=== PATIENT | male | born 1960 | race Caucasian/White ===

== ENCOUNTER 2017-11-14 17:07 | Inpatient (IN) | payer MEDICAID ==
[~2017-11-14] VITALS: Ht 172.7 cm; Wt 115.9 kg
[2017-11-14 19:05] LABS: Basophils # (auto) 0.1 uL; Basophils % (auto) 0.9 % (0.0-2.0); Eosinophils # (auto) 0.2 uL; Eosinophils % (auto) 2.7 % (0.0-7.0); Hematocrit 38.5 % (41.0-53.0); Hemoglobin 12.7 g/dL (13.5-17.5); Lymphocytes # (auto) 1.6 uL; Mean Corpuscular Hemoglobin 27.6 pg (28.0-32.0); Mean Corpuscular Volume 83.6 fL (80.0-100.0); Monocytes # (auto) 0.8 uL; Monocytes % (auto) 8.9 % (0.0-12.0); Neutrophils # (auto) 5.9 uL; Neutrophils % (auto) 68.5 % (37.0-80.0); Nucleated Red Blood Cells % 0.1 %; Platelet Count (auto) 327 10^3/uL (140-450); Red Cell Distribution Width 15.6 % (11.8-14.3); White Blood Cell 8.6 10^3/uL (4.4-10.8)
[2017-11-14 19:36] LABS: Albumin 3.4 g/dL (3.4-5.0); BUN/Creatinine Ratio 22.7; Bilirubin, Total 0.3 mg/dL (0.2-1.0); Calcium 9.2 mg/dL (8.5-10.1); Potassium 4.5 mmol/L (3.5-5.1); Total Protein 7.6 g/dL (6.4-8.2)
[2017-11-14] MEDS ORDERED: SODIUM CHLORIDE 0.9% 1,000 ML IV ONE (20:00)
[2017-11-14] MEDS ORDERED: InsuLIN REG 1unit/0.01ml Soln (100units/ml) IV ONE (20:00)
[2017-11-14] MEDS ORDERED: VANCOMYCIN 1GM/250ML 250 ML IV ONE (22:45)
[2017-11-14] MEDS ORDERED: cefTRIAXone 1GM/10ml IVPUSH 10 ML IV ONE (22:45)
[2017-11-15] MEDS ORDERED: DEXTROSE (50%) 50ML SYRG IV PRN (02:45)
[2017-11-15] MEDS ORDERED: ONDANSETRON HCL 4 MG/2 ML VIAL IV PRN (02:45)
[2017-11-15] MEDS ORDERED: VANCOMYCIN PER PHARMACY 0 MG IV SCH (02:45)
[2017-11-15] MEDS ORDERED: ACETAMINOPHEN 325 MG TAB PO PRN (03:30)
[2017-11-15] MEDS ORDERED: LAMO200T2 PO (03:38)
[2017-11-15] MEDS ORDERED: SERT-138 PO (03:38)
[2017-11-15] MEDS ORDERED: QUET50TA PO (03:38)
[2017-11-15] MEDS ORDERED: InsuLIN REG 1unit/0.01ml Soln (100units/ml) SC SCH (06:00)
[2017-11-15] MEDS: ACCU-CHEK COMFORT CURVE STRIP VI SCH ×4 (08:13→21:29)
[2017-11-15] MEDS ORDERED: FUROSEMIDE 40 MG TAB PO SCH (10:00)
[2017-11-15] MEDS ORDERED: LOSARTAN POTASSIUM 25 MG TAB PO SCH (10:00)
[2017-11-15] MEDS: FAMOTIDINE 20 MG TAB PO SCH ×2 (10:17→21:28)
[2017-11-15] MEDS: VANCOMYCIN 1GM/250ML 250 ML IV SCH ×2 (11:02→22:57)
[2017-11-15 13:00] VITALS: BP 164/97
[2017-11-15] MEDS: MORPHINE SULF INJ 2 MG/ML SYRINGE 1ML IV PRN (14:37)
[2017-11-15] MEDS ORDERED: GABA300C10 PO (15:03)
[2017-11-15] MEDS ORDERED: ASPI-231 PO (15:03)
[2017-11-15] MEDS ORDERED: PROP60CA34 PO (15:03)
[2017-11-15] MEDS ORDERED: LOSA25TA9 PO (15:03)
[2017-11-15] MEDS ORDERED: CARV3.1240 PO (15:03)
[2017-11-15 16:54] VITALS: BP 171/93
[2017-11-15] MEDS ORDERED: ACCU-CHEK COMFORT CURVE STRIP VI SCH (17:00)
[2017-11-15] MEDS: InsuLIN REG 1unit/0.01ml Soln (100units/ml) SC SCH ×2 (17:13→21:42)
[2017-11-15] MEDS: cloNIDine HCL 0.1 MG TAB PO PRN (17:15)
[2017-11-15] MEDS ORDERED: InsuLIN REG 1unit/0.01ml Soln (100units/ml) IV ONE (17:45)
[2017-11-15 18:26] VITALS: BP 140/74
[2017-11-15] MEDS ORDERED: ACCU-CHEK COMFORT CURVE STRIP VI ONE (19:45)
[2017-11-15] MEDS: ATORVASTATIN 20 MG TAB PO SCH (21:28)
[2017-11-15] MEDS: SERTRALINE HCL 50 MG TAB PO SCH (21:28)
[2017-11-15] MEDS: lamoTRIgine 100 MG TAB PO SCH (21:28)
[2017-11-15] MEDS: QUEtiapine FUMARATE 25 MG TAB PO SCH (21:28)
[2017-11-15] MEDS: GABAPENTIN 300 MG CAP PO SCH (21:29)
[2017-11-15] MEDS: INSULIN LANTUS (GLARGINE) 1 /0.01ml (100units/ml) SC SCH (21:42)
[2017-11-15 22:00] VITALS: BP 123/70
[2017-11-15] MEDS ORDERED: cefTRIAXone 1GM/10ml IVPUSH 10 ML IV SCH (22:00)
[2017-11-16] MEDS: MORPHINE SULF INJ 2 MG/ML SYRINGE 1ML IV PRN ×3 (05:10→23:42)
[2017-11-16 05:55] VITALS: BP 146/84
[2017-11-16] MEDS: GABAPENTIN 300 MG CAP PO SCH ×3 (06:45→21:55)
[2017-11-16] MEDS: ACCU-CHEK COMFORT CURVE STRIP VI SCH ×4 (06:45→21:56)
[2017-11-16] MEDS: InsuLIN REG 1unit/0.01ml Soln (100units/ml) SC SCH ×4 (06:48→21:57)
[2017-11-16 07:51] LABS: Calcium 8.7 mg/dL (8.5-10.1); Magnesium 2.1 mg/dL (1.6-2.6); Potassium 3.8 mmol/L (3.5-5.1)
[2017-11-16 07:53] LABS: BUN/Creatinine Ratio 18.3
[2017-11-16 08:00] LABS: Basophils # (auto) 0.1 uL; Eosinophils # (auto) 0.3 uL; Eosinophils % (auto) 3.6 % (0.0-7.0); Hematocrit 38.6 % (41.0-53.0); Hemoglobin 12.9 g/dL (13.5-17.5); Lymphocytes # (auto) 1.9 uL; Lymphocytes % (auto) 22.7 % (10.0-50.0); Mean Corpuscular Hemoglobin 27.7 pg (28.0-32.0); Mean Corpuscular Hgb Conc. 33.4 g/dL (32.0-36.0); Mean Corpuscular Volume 83.2 fL (80.0-100.0); Monocytes # (auto) 0.8 uL; Monocytes % (auto) 9.5 % (0.0-12.0); Neutrophils # (auto) 5.4 uL; Neutrophils % (auto) 63.2 % (37.0-80.0); Nucleated Red Blood Cells % 0.1 %; Platelet Count (auto) 313 10^3/uL (140-450); Red Blood Cells 4.64 10^6/uL (4.5-5.90); Red Cell Distribution Width 15.8 % (11.8-14.3); White Blood Cell 8.5 10^3/uL (4.4-10.8)
[2017-11-16 09:14] VITALS: BP 108/68
[2017-11-16] MEDS ORDERED: CARVEDILOL 3.125 MG TAB PO SCH (10:00)
[2017-11-16] MEDS ORDERED: PROPRANOLOL HCL 10 MG PO SCH (10:00)
[2017-11-16] MEDS: LOSARTAN POTASSIUM 50 MG TAB PO SCH (10:48)
[2017-11-16] MEDS: FUROSEMIDE 40 MG TAB PO SCH ×2 (10:49→21:55)
[2017-11-16] MEDS: ASPirin-EC 81 mg tab PO SCH (10:49)
[2017-11-16] MEDS: FAMOTIDINE 20 MG TAB PO SCH ×2 (10:50→21:55)
[2017-11-16] MEDS: INSULIN LANTUS (GLARGINE) 1 /0.01ml (100units/ml) SC SCH ×2 (10:50→21:56)
[2017-11-16] MEDS: VANCOMYCIN 1GM/250ML 250 ML IV SCH (11:20)
[2017-11-16] MEDS ORDERED: PROPRANOLOL HCL 20 MG TAB PO ONE (11:45)
[2017-11-16 17:26] VITALS: BP 124/76
[2017-11-16] MEDS: cefTRIAXone 1GM/10ml IVPUSH 10 ML IV SCH (21:00)
[2017-11-16] MEDS: VANCOMYCIN 1,500 MG in D5W 5% 250 ML IV SCH (21:54)
[2017-11-16] MEDS: lamoTRIgine 100 MG TAB PO SCH (21:54)
[2017-11-16] MEDS: ATORVASTATIN 20 MG TAB PO SCH (21:55)
[2017-11-16] MEDS: SERTRALINE HCL 50 MG TAB PO SCH (21:55)
[2017-11-16] MEDS: QUEtiapine FUMARATE 25 MG TAB PO SCH (21:55)
[2017-11-16 22:00] VITALS: BP 105/68
[2017-11-17 05:00] VITALS: BP 151/53
[2017-11-17] MEDS: GABAPENTIN 300 MG CAP PO SCH ×3 (06:25→22:12)
[2017-11-17] MEDS: ACCU-CHEK COMFORT CURVE STRIP VI SCH ×4 (06:25→22:13)
[2017-11-17] MEDS: InsuLIN REG 1unit/0.01ml Soln (100units/ml) SC SCH ×4 (06:27→22:29)
[2017-11-17 07:16] LABS: Basophils # (auto) 0.1 uL; Basophils % (auto) 0.6 % (0.0-2.0); Eosinophils # (auto) 0.4 uL; Eosinophils % (auto) 4.1 % (0.0-7.0); Hematocrit 38.3 % (41.0-53.0); Hemoglobin 12.8 g/dL (13.5-17.5); Lymphocytes # (auto) 1.4 uL; Lymphocytes % (auto) 14.2 % (10.0-50.0); Mean Corpuscular Hemoglobin 27.6 pg (28.0-32.0); Mean Corpuscular Hgb Conc. 33.4 g/dL (32.0-36.0); Mean Corpuscular Volume 82.7 fL (80.0-100.0); Monocytes # (auto) 0.8 uL; Monocytes % (auto) 8.3 % (0.0-12.0); Neutrophils # (auto) 7.4 uL; Neutrophils % (auto) 72.8 % (37.0-80.0); Platelet Count (auto) 305 10^3/uL (140-450); Red Blood Cells 4.63 10^6/uL (4.5-5.90); Red Cell Distribution Width 15.9 % (11.8-14.3); White Blood Cell 10.1 10^3/uL (4.4-10.8)
[2017-11-17 07:33] LABS: Potassium 3.7 mmol/L (3.5-5.1)
[2017-11-17 07:42] LABS: BUN/Creatinine Ratio 16.7; Calcium 8.2 mg/dL (8.5-10.1)
[2017-11-17] MEDS: MORPHINE SULF INJ 2 MG/ML SYRINGE 1ML IV PRN ×2 (09:36→15:38)
[2017-11-17] MEDS ORDERED: SOD CHL 0.45% 1,000 ML IV ONE (09:45)
[2017-11-17] MEDS ORDERED: VANCOMYCIN 1,500 MG in D5W 5% 250 ML IV SCH (10:00)
[2017-11-17] MEDS: INSULIN LANTUS (GLARGINE) 1 /0.01ml (100units/ml) SC SCH ×2 (10:05→22:27)
[2017-11-17] MEDS: LOSARTAN POTASSIUM 50 MG TAB PO SCH (10:06)
[2017-11-17] MEDS: ASPirin-EC 81 mg tab PO SCH (10:06)
[2017-11-17] MEDS: PROPRANOLOL HCL 20 MG TAB PO SCH (10:07)
[2017-11-17] MEDS: FAMOTIDINE 20 MG TAB PO SCH ×2 (10:07→22:12)
[2017-11-17] MEDS: VANCOMYCIN 1,500 MG in D5W 5% 250 ML IV SCH ×2 (10:29→22:11)
[2017-11-17 12:25] VITALS: BP 106/82
[2017-11-17 17:22] VITALS: BP 120/75
[2017-11-17] MEDS: cefTRIAXone 1GM/10ml IVPUSH 10 ML IV SCH (21:32)
[2017-11-17 22:00] VITALS: BP 142/69
[2017-11-17] MEDS: lamoTRIgine 100 MG TAB PO SCH (22:11)
[2017-11-17] MEDS: ATORVASTATIN 20 MG TAB PO SCH (22:12)
[2017-11-17] MEDS: QUEtiapine FUMARATE 25 MG TAB PO SCH (22:13)
[2017-11-17] MEDS: SERTRALINE HCL 50 MG TAB PO SCH (22:13)
[2017-11-18 05:00] VITALS: BP 128/71
[2017-11-18] MEDS: ACCU-CHEK COMFORT CURVE STRIP VI SCH ×4 (06:20→21:40)
[2017-11-18] MEDS: InsuLIN REG 1unit/0.01ml Soln (100units/ml) SC SCH ×4 (06:20→21:39)
[2017-11-18] MEDS: GABAPENTIN 300 MG CAP PO SCH ×3 (06:20→21:38)
[2017-11-18 06:24] LABS: Basophils # (auto) 0 uL; Basophils % (auto) 0.5 % (0.0-2.0); Eosinophils # (auto) 0.4 uL; Eosinophils % (auto) 4.6 % (0.0-7.0); Hematocrit 36.2 % (41.0-53.0); Hemoglobin 12.3 g/dL (13.5-17.5); Lymphocytes # (auto) 1.3 uL; Lymphocytes % (auto) 14.5 % (10.0-50.0); Mean Corpuscular Hemoglobin 27.8 pg (28.0-32.0); Mean Corpuscular Hgb Conc. 33.8 g/dL (32.0-36.0); Mean Corpuscular Volume 82.2 fL (80.0-100.0); Monocytes # (auto) 0.8 uL; Monocytes % (auto) 8.7 % (0.0-12.0); Neutrophils # (auto) 6.4 uL; Neutrophils % (auto) 71.7 % (37.0-80.0); Platelet Count (auto) 304 10^3/uL (140-450); Red Cell Distribution Width 15.8 % (11.8-14.3)
[2017-11-18 06:34] LABS: BUN/Creatinine Ratio 18.8; Calcium 8.1 mg/dL (8.5-10.1); Potassium 3.9 mmol/L (3.5-5.1)
[2017-11-18 08:00] VITALS: BP 106/72
[2017-11-18 09:00] VITALS: BP 103/73
[2017-11-18] MEDS: VANCOMYCIN 1,500 MG in D5W 5% 250 ML IV SCH (09:44)
[2017-11-18] MEDS: MULTIPLE VITAMIN TAB PO SCH (09:44)
[2017-11-18] MEDS: FAMOTIDINE 20 MG TAB PO SCH ×2 (09:44→21:38)
[2017-11-18] MEDS: LOSARTAN POTASSIUM 50 MG TAB PO SCH (09:45)
[2017-11-18] MEDS: ASCORBIC ACID 500 MG TAB PO SCH ×2 (09:46→21:39)
[2017-11-18] MEDS: ASPirin-EC 81 mg tab PO SCH (09:46)
[2017-11-18] MEDS: PROPRANOLOL HCL 20 MG TAB PO SCH (09:46)
[2017-11-18] MEDS: INSULIN LANTUS (GLARGINE) 1 /0.01ml (100units/ml) SC SCH ×2 (10:11→21:40)
[2017-11-18 13:00] VITALS: BP 129/71
[2017-11-18 18:04] VITALS: BP 131/75
[2017-11-18] MEDS: cefTRIAXone 1GM/10ml IVPUSH 10 ML IV SCH (20:54)
[2017-11-18] MEDS: QUEtiapine FUMARATE 25 MG TAB PO SCH (21:38)
[2017-11-18] MEDS: ATORVASTATIN 20 MG TAB PO SCH (21:38)
[2017-11-18] MEDS: lamoTRIgine 100 MG TAB PO SCH (21:38)
[2017-11-18] MEDS: SERTRALINE HCL 50 MG TAB PO SCH (21:39)
[2017-11-18 21:47] VITALS: BP 152/72
[2017-11-19 04:41] VITALS: BP 94/52
[2017-11-19] MEDS: GABAPENTIN 300 MG CAP PO SCH ×3 (05:39→21:57)
[2017-11-19] MEDS: ACCU-CHEK COMFORT CURVE STRIP VI SCH ×4 (06:11→21:59)
[2017-11-19] MEDS: InsuLIN REG 1unit/0.01ml Soln (100units/ml) SC SCH ×4 (06:11→21:58)
[2017-11-19 07:10] LABS: Basophils # (auto) 0.1 uL; Basophils % (auto) 0.9 % (0.0-2.0); Eosinophils # (auto) 0.3 uL; Eosinophils % (auto) 3.6 % (0.0-7.0); Hematocrit 35.2 % (41.0-53.0); Hemoglobin 11.6 g/dL (13.5-17.5); Lymphocytes # (auto) 1.2 uL; Lymphocytes % (auto) 14.6 % (10.0-50.0); Mean Corpuscular Hemoglobin 27.5 pg (28.0-32.0); Mean Corpuscular Hgb Conc. 32.9 g/dL (32.0-36.0); Mean Corpuscular Volume 83.6 fL (80.0-100.0); Monocytes # (auto) 0.6 uL; Monocytes % (auto) 7.2 % (0.0-12.0); Neutrophils # (auto) 6.2 uL; Neutrophils % (auto) 73.7 % (37.0-80.0); Platelet Count (auto) 293 10^3/uL (140-450); Red Blood Cells 4.21 10^6/uL (4.5-5.90); Red Cell Distribution Width 15.6 % (11.8-14.3); White Blood Cell 8.5 10^3/uL (4.4-10.8)
[2017-11-19 07:26] LABS: BUN/Creatinine Ratio 15.8; Calcium 7.8 mg/dL (8.5-10.1); Potassium 4.2 mmol/L (3.5-5.1)
[2017-11-19 09:00] VITALS: BP 145/80
[2017-11-19] MEDS: FAMOTIDINE 20 MG TAB PO SCH ×2 (10:05→21:57)
[2017-11-19] MEDS: LOSARTAN POTASSIUM 50 MG TAB PO SCH (10:05)
[2017-11-19] MEDS: ASCORBIC ACID 500 MG TAB PO SCH ×2 (10:05→21:58)
[2017-11-19] MEDS: PROPRANOLOL HCL 20 MG TAB PO SCH (10:06)
[2017-11-19] MEDS: MULTIPLE VITAMIN TAB PO SCH (10:06)
[2017-11-19] MEDS: ASPirin-EC 81 mg tab PO SCH (10:12)
[2017-11-19] MEDS: VANCOMYCIN 1GM/250ML 250 ML IV SCH ×2 (10:12→21:56)
[2017-11-19] MEDS: INSULIN LANTUS (GLARGINE) 1 /0.01ml (100units/ml) SC SCH ×2 (11:14→21:59)
[2017-11-19 13:00] VITALS: BP 146/84
[2017-11-19] MEDS: MORPHINE SULF INJ 2 MG/ML SYRINGE 1ML IV PRN (14:16)
[2017-11-19] MEDS: cloNIDine HCL 0.1 MG TAB PO PRN (16:53)
[2017-11-19 17:15] VITALS: BP 196/101
[2017-11-19] MEDS: cefTRIAXone 1GM/10ml IVPUSH 10 ML IV SCH (20:40)
[2017-11-19] MEDS: lamoTRIgine 100 MG TAB PO SCH (21:57)
[2017-11-19] MEDS: ATORVASTATIN 20 MG TAB PO SCH (21:57)
[2017-11-19] MEDS: SERTRALINE HCL 50 MG TAB PO SCH (21:58)
[2017-11-19] MEDS: QUEtiapine FUMARATE 25 MG TAB PO SCH (21:58)
[2017-11-19 22:00] VITALS: BP 155/83
[2017-11-20 05:00] VITALS: BP 140/82
[2017-11-20] MEDS: GABAPENTIN 300 MG CAP PO SCH ×3 (05:36→22:34)
[2017-11-20] MEDS: InsuLIN REG 1unit/0.01ml Soln (100units/ml) SC SCH ×4 (06:04→22:00)
[2017-11-20] MEDS: ACCU-CHEK COMFORT CURVE STRIP VI SCH ×4 (06:04→22:37)
[2017-11-20 07:07] LABS: Basophils # (auto) 0.1 uL; Basophils % (auto) 0.7 % (0.0-2.0); Eosinophils # (auto) 0.3 uL; Eosinophils % (auto) 4.5 % (0.0-7.0); Hematocrit 35.6 % (41.0-53.0); Hemoglobin 11.9 g/dL (13.5-17.5); Lymphocytes # (auto) 1.8 uL; Lymphocytes % (auto) 23.1 % (10.0-50.0); Mean Corpuscular Hemoglobin 27.5 pg (28.0-32.0); Mean Corpuscular Hgb Conc. 33.4 g/dL (32.0-36.0); Mean Corpuscular Volume 82.4 fL (80.0-100.0); Monocytes # (auto) 0.6 uL; Monocytes % (auto) 8.1 % (0.0-12.0); Neutrophils # (auto) 4.9 uL; Neutrophils % (auto) 63.6 % (37.0-80.0); Platelet Count (auto) 316 10^3/uL (140-450); Red Blood Cells 4.32 10^6/uL (4.5-5.90); Red Cell Distribution Width 15.6 % (11.8-14.3); White Blood Cell 7.6 10^3/uL (4.4-10.8)
[2017-11-20 07:23] LABS: INR 0.98 (0.9-1.15); Prothrombin Time 10.5 sec (9.27-12.13)
[2017-11-20 07:27] LABS: BUN/Creatinine Ratio 15.9; Calcium 8.1 mg/dL (8.5-10.1); Potassium 4.1 mmol/L (3.5-5.1)
[2017-11-20 09:00] VITALS: BP 153/81
[2017-11-20] MEDS: INSULIN LANTUS (GLARGINE) 1 /0.01ml (100units/ml) SC SCH ×2 (10:32→22:00)
[2017-11-20] MEDS: ASPirin-EC 81 mg tab PO SCH (10:34)
[2017-11-20] MEDS: MULTIPLE VITAMIN TAB PO SCH (10:34)
[2017-11-20] MEDS: FAMOTIDINE 20 MG TAB PO SCH ×2 (10:35→22:34)
[2017-11-20] MEDS: ASCORBIC ACID 500 MG TAB PO SCH ×2 (10:35→22:36)
[2017-11-20] MEDS: LOSARTAN POTASSIUM 50 MG TAB PO SCH (10:36)
[2017-11-20] MEDS: PROPRANOLOL HCL 20 MG TAB PO SCH (10:37)
[2017-11-20] MEDS: ceFAZolin 1GM/50ML 50 ML IV SCH ×2 (12:24→18:31)
[2017-11-20 13:00] VITALS: BP 149/88
[2017-11-20] MEDS: MORPHINE SULF INJ 2 MG/ML SYRINGE 1ML IV PRN (16:44)
[2017-11-20 17:50] VITALS: BP 157/75
[2017-11-20 22:00] VITALS: BP 162/90
[2017-11-20] MEDS ORDERED: FURO20TA PO (22:20)
[2017-11-20] MEDS ORDERED: INSLANTI SC (22:22)
[2017-11-20] MEDS ORDERED: FLU220IH INH (22:31)
[2017-11-20] MEDS ORDERED: RANITAB30 PO (22:31)
[2017-11-20] MEDS ORDERED: INSUINJ3 SC ×2 (22:31)
[2017-11-20] MEDS ORDERED: GLUC0.8I2 IJ (22:31)
[2017-11-20] MEDS: ATORVASTATIN 20 MG TAB PO SCH (22:35)
[2017-11-20] MEDS: SERTRALINE HCL 50 MG TAB PO SCH (22:35)
[2017-11-20] MEDS: lamoTRIgine 100 MG TAB PO SCH (22:35)
[2017-11-20] MEDS: QUEtiapine FUMARATE 25 MG TAB PO SCH (22:36)
[2017-11-21] MEDS ORDERED: diphenhdrAMINE HCL 25 MG CAP PO ONE ×2 (00:15)
[2017-11-21] MEDS ORDERED: PROPRANOLOL HCL 20 MG TAB PO SCH (00:15)
[2017-11-21] MEDS: PROPRANOLOL HCL 20 MG TAB PO SCH ×3 (00:26→22:25)
[2017-11-21] MEDS: ceFAZolin 1GM/50ML 50 ML IV SCH ×6 (03:30→23:49)
[2017-11-21] MEDS: GABAPENTIN 300 MG CAP PO SCH ×3 (05:25→22:20)
[2017-11-21] MEDS: ACCU-CHEK COMFORT CURVE STRIP VI SCH ×4 (05:26→22:26)
[2017-11-21] MEDS: InsuLIN REG 1unit/0.01ml Soln (100units/ml) SC SCH ×4 (05:26→22:00)
[2017-11-21] MEDS: DEXTROSE (50%) 50ML SYRG IV PRN ×2 (06:19→15:30)
[2017-11-21] MEDS ORDERED: D5W/SOD CHL 0.45% 1,000 ML IV ONE (07:15)
[2017-11-21 07:40] VITALS: BP 116/67
[2017-11-21] MEDS: ASCORBIC ACID 500 MG TAB PO SCH ×2 (10:00→22:21)
[2017-11-21] MEDS: ASPirin-EC 81 mg tab PO SCH (10:00)
[2017-11-21] MEDS: FAMOTIDINE 20 MG TAB PO SCH ×2 (10:00→22:21)
[2017-11-21] MEDS: INSULIN LANTUS (GLARGINE) 1 /0.01ml (100units/ml) SC SCH ×2 (10:00→22:49)
[2017-11-21] MEDS: MULTIPLE VITAMIN TAB PO SCH (10:00)
[2017-11-21] MEDS: LOSARTAN POTASSIUM 50 MG TAB PO SCH (10:00)
[2017-11-21 12:13] VITALS: BP 131/68
[2017-11-21] MEDS ORDERED: LIDOCAINE 1% HCL (LOCAL ANESTH.) INJ 20ML MDV ONE (14:16)
[2017-11-21] MEDS ORDERED: BUPIVACAINE HCL 50 ML ONE (14:18)
[2017-11-21] MEDS ORDERED: fentaNYL CITRATE 100 MCG/2 ML VL ONE (14:42)
[2017-11-21] MEDS ORDERED: MIDAZOLAM HCL 1MG/1ML-2 ML VIAL ONE (14:43)
[2017-11-21] MEDS ORDERED: PROPOFOL 10 MG/ML 20 ML IV ONE (14:44)
[2017-11-21] MEDS ORDERED: ONDANSETRON HCL 4 MG/2 ML VIAL IV ONE (15:30)
[2017-11-21] MEDS ORDERED: ePHEDrine SULFATE 50 MG/ML AMP IV PRN (15:30)
[2017-11-21] MEDS ORDERED: hydrALAZINE HCL 20 MG/ML VL IV PRN (15:30)
[2017-11-21] MEDS ORDERED: fentaNYL CITRATE 100 MCG/2 ML VL IV ONE (16:00)
[2017-11-21 22:00] VITALS: BP 145/64
[2017-11-21] MEDS: lamoTRIgine 100 MG TAB PO SCH (22:20)
[2017-11-21] MEDS: ATORVASTATIN 20 MG TAB PO SCH (22:20)
[2017-11-21] MEDS: SERTRALINE HCL 50 MG TAB PO SCH (22:22)
[2017-11-21] MEDS: QUEtiapine FUMARATE 25 MG TAB PO SCH (22:23)
[2017-11-21] MEDS: MORPHINE SULF INJ 2 MG/ML SYRINGE 1ML IV PRN (23:49)
[2017-11-22 05:00] VITALS: BP 143/78
[2017-11-22] MEDS: InsuLIN REG 1unit/0.01ml Soln (100units/ml) SC SCH ×2 (05:30→12:39)
[2017-11-22] MEDS: ceFAZolin 1GM/50ML 50 ML IV SCH ×2 (05:30→12:39)
[2017-11-22] MEDS: ACCU-CHEK COMFORT CURVE STRIP VI SCH ×2 (05:31→11:30)
[2017-11-22] MEDS: GABAPENTIN 300 MG CAP PO SCH ×2 (05:31→14:00)
[2017-11-22 07:31] VITALS: BP 127/66
[2017-11-22 08:42] LABS: Basophils # (auto) 0.1 uL; Eosinophils # (auto) 0.4 uL; Hemoglobin 11.9 g/dL (13.5-17.5); Monocytes % (auto) 10.4 % (0.0-12.0); White Blood Cell 9.4 10^3/uL (4.4-10.8)
[2017-11-22 08:43] LABS: Basophils % (auto) 0.8 % (0.0-2.0); Hematocrit 36.2 % (41.0-53.0); Lymphocytes # (auto) 2.4 uL; Lymphocytes % (auto) 26.1 % (10.0-50.0); Mean Corpuscular Hemoglobin 27.3 pg (28.0-32.0); Mean Corpuscular Volume 82.5 fL (80.0-100.0); Neutrophils # (auto) 5.5 uL; Neutrophils % (auto) 58.7 % (37.0-80.0); Platelet Count (auto) 368 10^3/uL (140-450); Red Blood Cells 4.38 10^6/uL (4.5-5.90); Red Cell Distribution Width 15.8 % (11.8-14.3)
[2017-11-22 08:45] LABS: BUN/Creatinine Ratio 12.6; Calcium 8.4 mg/dL (8.5-10.1); Potassium 4.6 mmol/L (3.5-5.1)
[2017-11-22] MEDS: PROPRANOLOL HCL 20 MG TAB PO SCH (09:57)
[2017-11-22] MEDS: LOSARTAN POTASSIUM 50 MG TAB PO SCH (09:58)
[2017-11-22] MEDS: FAMOTIDINE 20 MG TAB PO SCH (09:58)
[2017-11-22] MEDS: ASPirin-EC 81 mg tab PO SCH (09:59)
[2017-11-22] MEDS: MULTIPLE VITAMIN TAB PO SCH (09:59)
[2017-11-22] MEDS: ASCORBIC ACID 500 MG TAB PO SCH (10:00)
[2017-11-22] MEDS: INSULIN LANTUS (GLARGINE) 1 /0.01ml (100units/ml) SC SCH (10:01)
[2017-11-22] MEDS: MORPHINE SULF INJ 2 MG/ML SYRINGE 1ML IV PRN (10:44)
[2017-11-22 11:55] VITALS: BP 147/70
[2017-11-22 14:26] VITALS: BP 147/70
[2017-11-22 16:18] VITALS: BP 105/68
== END 2017-11-22 16:00 | disposition home or self-care (01) | DRG 314 ==
LOC: ER 17:13 → OVERFLOW 17:14 → EAST 11-15 12:09
PROVIDERS: ADMIT Nurse Practitioner; ATTEND Internal Medicine
PROC: 0Y6Q0Z0 Detachment at Left 1st Toe, Complete, Open Approach (ICD-10-PCS; principal; 2017-11-21 14:34)
DX: E11.69 Type 2 diabetes mellitus with other specified complication (principal); E11.22 Type 2 diabetes mellitus with diabetic chronic kidney disease; L02.415 Cutaneous abscess of right lower limb; E66.01 Morbid (severe) obesity due to excess calories; E11.65 Type 2 diabetes mellitus with hyperglycemia; M86.8X7 Other osteomyelitis, ankle and foot; E11.42 Type 2 diabetes mellitus with diabetic polyneuropathy; E11.621 Type 2 diabetes mellitus with foot ulcer; I12.9 Hypertensive chronic kidney disease with stage 1 through stage 4 chronic kidney disease, or unspecified chronic kidney disease; Z79.4 Long term (current) use of insulin; L97.529 Non-pressure chronic ulcer of other part of left foot with unspecified severity; Z89.411 Acquired absence of right great toe; Z82.49 Family history of ischemic heart disease and other diseases of the circulatory system; N18.2 Chronic kidney disease, stage 2 (mild); D63.1 Anemia in chronic kidney disease; Z88.6 Allergy status to analgesic agent; Z88.1 Allergy status to other antibiotic agents; Z88.2 Allergy status to sulfonamides; Z80.0 Family history of malignant neoplasm of digestive organs; Z82.0 Family history of epilepsy and other diseases of the nervous system; Z68.38 Body mass index [BMI] 38.0-38.9, adult; Z86.14 Personal history of Methicillin resistant Staphylococcus aureus infection; Z83.3 Family history of diabetes mellitus
CPT/HCPCS: 36415; 71045; 73630; 73700; 76881; 80048; 80053; 80202; 82010; 82962; 83036; 83735; 85025; 85610; 87040; 87077; 87081; 87186; 87205; 93926; 96372; 96374; 96375; J0690; J0696; J1815; J2001; J2250; J2405; J2704; J3490; J7060; Q4131